=== PATIENT | male | born 1950 | race Caucasian/White ===

== ENCOUNTER 2019-01-22 22:25 | Inpatient (IN) | payer OTHER ==
[~2019-01-22] VITALS: Ht 182.9 cm; Wt 77.2 kg
[2019-01-22 22:28] VITALS: Ht 182.9 cm; Wt 77.2 kg
[2019-01-23] VITALS (7 sets, daily range): BP systolic 83–107; BP diastolic 47–550
[2019-01-23 00:01] LABS: CALCIUM 7.9 mg/dL (8.5-10.1); CARBON DIOXIDE 22.4 mmol/L (21-32); CREATININE SERUM 1.6 mg/dL (0.7-1.3); POTASSIUM SERUM 4.3 mmol/L (3.5-5.1); RED CELL DISTRIBUTION WIDTH 17.3 % (11.5-14.5)
[2019-01-23 00:07] LABS: ALBUMIN 2.1 g/dL (3.4-5.0); BILIRUBIN TOTAL 0.3 mg/dL (0.20-1.00); MAGNESIUM 2.2 mg/dL (1.8-2.4); TOTAL PROTEIN, SERUM 6.5 g/dL (6.4-8.2)
[2019-01-23 00:10] LABS: BAND NEUTROPHIL 3 % (0-10); MONOCYTE 2 % (0-7); SEGMENTED NEUTROPHILS 90 % (37-75); rbc morphology (normal/abnorm) ABNORMAL (NORMAL)
[2019-01-23 00:11] LABS: PLATELET MORPHOLOGY PLATELETS INCREASED
[2019-01-23 01:16] LABS: PLATELET COUNT 591 x10^3mcL (130-400)
[2019-01-23] MEDS ORDERED: APAP500 MG (02:37)
[2019-01-23] MEDS ORDERED: KETOCONAZOLE200 MG (02:37)
[2019-01-23] MEDS ORDERED: LYRICA75 M1 (02:37)
[2019-01-23] MEDS ORDERED: LANTI (02:38)
[2019-01-23] MEDS ORDERED: CARVEDILOL6.25 M1 (02:38)
[2019-01-23] MEDS ORDERED: PROTONIX20 MG (02:38)
[2019-01-23] MEDS ORDERED: GOOD SENSE ASPI81 M3 (02:39)
[2019-01-23] MEDS ORDERED: VITC100 (02:39)
[2019-01-23] MEDS ORDERED: LIPITOR40 MG (02:39)
[2019-01-23] MEDS ORDERED: COLACE100 MG (02:39)
[2019-01-23] MEDS ORDERED: ZESTRIL20 MG (02:39)
[2019-01-23] MEDS ORDERED: GAS RELIEF80 MG (02:40)
[2019-01-23] MEDS ORDERED: KEN025C (02:40)
[2019-01-24 05:17] VITALS: BP 133/76
[2019-01-24 05:19] VITALS: BP 110/63
[2019-01-24 06:42] LABS: BASOPHIL % 0.1 % (0-2)
[2019-01-24 06:58] LABS: PLATELET COUNT 402 x10^3mcL (130-400)
[2019-01-24 07:04] LABS: CALCIUM 7.9 mg/dL (8.5-10.1); CARBON DIOXIDE 21.5 mmol/L (21-32); CHLORIDE SERUM 107 mmol/L (98-107); CREATININE SERUM 1.2 mg/dL (0.7-1.3); GFR1 > 60 mL/min; GLUCOSE SERUM 83 mg/dL (74-106); POTASSIUM SERUM 4.5 mmol/L (3.5-5.1); SODIUM SERUM 138 mmol/L (136-145)
[2019-01-24 09:27] VITALS: BP 97/49
[2019-01-24 12:30] VITALS: BP 107/55
[2019-01-24 17:46] VITALS: BP 109/56
[2019-01-24 20:44] VITALS: BP 110/61
[2019-01-25 05:33] VITALS: BP 104/66
[2019-01-25 06:29] LABS: CALCIUM 8.5 mg/dL (8.5-10.1); CARBON DIOXIDE 21.2 mmol/L (21-32); CHLORIDE SERUM 104 mmol/L (98-107); CREATININE SERUM 1.2 mg/dL (0.7-1.3); GFR1 > 60 mL/min; GLUCOSE SERUM 101 mg/dL (74-106); POTASSIUM SERUM 4.6 mmol/L (3.5-5.1); SODIUM SERUM 137 mmol/L (136-145)
[2019-01-25 06:32] LABS: BASOPHIL % 0.4 % (0-2)
[2019-01-25 07:18] LABS: PLATELET COUNT 403 x10^3mcL (130-400); RED CELL DISTRIBUTION WIDTH 16.6 % (11.5-14.5)
[2019-01-25 09:14] VITALS: BP 115/65
[2019-01-25 14:24] VITALS: BP 121/65
[2019-01-25 17:41] VITALS: BP 100/61
[2019-01-25 19:20] VITALS: BP 97/50
[2019-01-26 05:40] VITALS: BP 122/72
[2019-01-26 09:18] VITALS: BP 110/70
[2019-01-26 12:43] VITALS: BP 111/62
[2019-01-26 20:34] VITALS: BP 112/59
[2019-01-27] VITALS (7 sets, daily range): BP systolic 109–126; BP diastolic 61–76
[2019-01-27 06:24] LABS: BASOPHIL % 0.8 % (0-2); PLATELET COUNT 334 x10^3mcL (130-400)
[2019-01-27 06:37] LABS: RED CELL DISTRIBUTION WIDTH 16.7 % (11.5-14.5)
[2019-01-27 06:59] LABS: C REACTIVE PROTEIN 4.8 mg/dL (<=0.9); CARBON DIOXIDE 24.3 mmol/L (21-32); CHLORIDE SERUM 107 mmol/L (98-107); CREATININE SERUM 1.1 mg/dL (0.7-1.3); GFR1 > 60 mL/min; GLUCOSE SERUM 105 mg/dL (74-106); POTASSIUM SERUM 4.2 mmol/L (3.5-5.1); SODIUM SERUM 139 mmol/L (136-145)
[2019-01-28 05:11] VITALS: BP 127/76
[2019-01-28 06:24] LABS: CALCIUM 8.3 mg/dL (8.5-10.1); CHLORIDE SERUM 106 mmol/L (98-107); GFR1 > 60 mL/min; GLUCOSE SERUM 117 mg/dL (74-106); POTASSIUM SERUM 3.8 mmol/L (3.5-5.1); SODIUM SERUM 139 mmol/L (136-145)
[2019-01-28 06:32] LABS: BASOPHIL % 0.7 % (0-2); PLATELET COUNT 335 x10^3mcL (130-400)
[2019-01-28 06:33] LABS: RED CELL DISTRIBUTION WIDTH 16.6 % (11.5-14.5)
[2019-01-28 09:27] VITALS: BP 113/76
[2019-01-28 12:25] VITALS: BP 132/72
[2019-01-28 16:55] VITALS: BP 123/71
[2019-01-28 20:56] VITALS: BP 108/60
[2019-01-29 05:47] VITALS: BP 97/67
[2019-01-29 09:46] VITALS: BP 118/73
[2019-01-29 11:36] VITALS: BP 118/73
[2019-01-29 12:16] VITALS: BP 125/72
== END 2019-01-29 15:13 | disposition other institution (70) | DRG 871 ==
LOC: ED 22:25 → DU 01-23 01:15
PROVIDERS: Emergency Medicine; Internal Medicine Gastroenterology; ADMIT Internal Medicine
PROC: 0DBN8ZX Excision of Sigmoid Colon, Via Natural or Artificial Opening Endoscopic, Diagnostic (ICD-10-PCS; principal; 2019-01-25 09:00)
DX: A41.9 Sepsis, unspecified organism (principal); K55.031 Focal (segmental) acute (reversible) ischemia of large intestine; N17.9 Acute kidney failure, unspecified; E86.0 Dehydration; K59.00 Constipation, unspecified; E11.9 Type 2 diabetes mellitus without complications; K52.9 Noninfective gastroenteritis and colitis, unspecified; I13.10 Hypertensive heart and chronic kidney disease without heart failure, with stage 1 through stage 4 chronic kidney disease, or unspecified chronic kidney disease; E11.22 Type 2 diabetes mellitus with diabetic chronic kidney disease; N18.9 Chronic kidney disease, unspecified; I25.10 Atherosclerotic heart disease of native coronary artery without angina pectoris; D64.9 Anemia, unspecified; Z79.4 Long term (current) use of insulin; Z92.3 Personal history of irradiation; Z85.51 Personal history of malignant neoplasm of bladder; Z68.21 Body mass index [BMI] 21.0-21.9, adult
CPT/HCPCS: 45378; 82962; A4371; C9113; G0378; J0696; J1200; J1610; J1885; J2250; J2310; J2550; J2765; J3010; J3490; J7030; J7042; J7050; J7060; P9016; Q0092